=== PATIENT | male | born 2000 | race Caucasian/White ===

== ENCOUNTER 2024-03-08 00:41 | Emergency (ER) | payer OTHER ==
[~2024-03-08] VITALS: Ht 188 cm; Wt 90.7 kg
[2024-03-08] MEDS ORDERED: HYDROCODONE/APAP 5/325MG TABLET ONE (02:32)
[2024-03-08] MEDS: HYDROCODONE/APAP 5/325MG TABLET PO ONE (02:35)
[2024-03-08 02:42] VITALS: BP 138/76; TEMP 98.3
[2024-03-08] MEDS ORDERED: POLY119P PO (02:52)
[2024-03-08] MEDS ORDERED: LIDO28CR2 TP (02:52)
[2024-03-08 03:08] VITALS: O2SAT 100
== END 2024-03-08 03:14 | disposition home or self-care (01) ==
LOC: ER 00:46
DX: K60.2 Anal fissure, unspecified (principal); Z60.2 Problems related to living alone

== ENCOUNTER 2024-03-12 08:57 | Emergency (ER) | payer OTHER ==
[~2024-03-12] VITALS: Ht 188 cm; Wt 90.7 kg
[~2024-03-12 08:57] MED LIST: LIDO28CR2 TP; POLY119P PO
[2024-03-12 09:05] VITALS: TEMP 98.1
[2024-03-12] MEDS ORDERED: LIDOCAINE 1% INJ 50 ML MDV IJ ONE (11:03)
[2024-03-12] MEDS: BACI/NEOM/POLY B OINT PKT 1 UDPKT PACKET TP ONE (12:20)
[2024-03-12] MEDS: LIDOCAINE 1% INJ 50 ML MDV IJ ONE (12:20)
[2024-03-12] MEDS ORDERED: IBUP-1955 PO (12:51)
[2024-03-12] MEDS ORDERED: SULF1TAB48 PO (12:51)
[2024-03-12] MEDS ORDERED: CEPH-570 PO (12:51)
[2024-03-12 13:12] VITALS: BP 125/67; O2SAT 99
== END 2024-03-12 13:11 | disposition home or self-care (01) ==
LOC: ER 09:10
DX: K61.0 Anal abscess (principal); Z60.2 Problems related to living alone
CPT/HCPCS: 46050; 99284; J3490; A6403; A6407

== ENCOUNTER 2024-03-14 13:46 | Emergency (ER) | payer OTHER ==
[~2024-03-14] VITALS: Ht 188 cm; Wt 90.7 kg
[~2024-03-14 13:46] MED LIST changes: +CEPH-570 PO; +IBUP-1955 PO; +SULF1TAB48 PO
[2024-03-14 14:14] VITALS: BP 129/68; TEMP 97.9
[2024-03-14 15:00] VITALS: O2SAT 99
== END 2024-03-14 15:00 | disposition home or self-care (01) ==
LOC: ER 13:46
DX: K61.0 Anal abscess (principal); Z48.00 Encounter for change or removal of nonsurgical wound dressing; Z60.2 Problems related to living alone
CPT/HCPCS: 99282; A6403 ×2; A6407